=== PATIENT | male | born 1985 | race Two or more races ===

== ENCOUNTER 2016-03-27 09:37 | Emergency (ER) | payer SELFPAY ==
[2016-03-27] MEDS ORDERED: NEOMY SULF/POLYMYX B SULF/HC OTIC 200 GTTS/10 ML BOT SUSP OT ONE (10:45)
[2016-03-27] MEDS ORDERED: IBUPROFEN 600 MG TABLET ONE (10:53)
[2016-03-27] MEDS ORDERED: HYDROCODONE/ACETAMINOPHEN 5/325MG TABLET ONE (10:55)
== END 2016-03-27 11:58 | disposition home or self-care (01) ==
LOC: ED 09:37
DX: H60.91 Unspecified otitis externa, right ear (principal)
CPT/HCPCS: 99283 ×2; A9270 ×2